=== PATIENT | male | born 1970 | race Two or more races ===

== ENCOUNTER 2021-01-03 10:14 | Emergency (ER) | payer SELFPAY ==
--- NOTE | 2021-01-03 10:33 | EDM.PDOC ---
ED HPI GENERAL MEDICAL PROBLEM - General Chief Complaint: Laceration Stated Complaint: CUT FINGER Time Seen by Provider: 01/03/21 10:31 - History of Present Illness INITIAL COMMENTS - FREE TEXT/NARRATIVE: 50-year-old male no other past medical history last tetanus 8 years ago presenting with laceration to the tip of the left middle finger. His left middle finger. Patient is right-hand dominant. He was working on his stairs a nd sustained a laceration with saw. No other injury, severe pain. Patient thinks he felt the saw hit the bone. finger Pain Score (Numeric/FACES): 10 - Related Data Allergies Allergy/AdvReac Type Severity Reaction Status Date / Time No Known Allergies Allergy Verified 01/03/21 10:42 Home Meds: Home Meds Amoxicillin/Potassium Clav [Augmentin 875-125 Tablet] 1 each PO BID 5 Days #10 tablet 01/03/21 [Rx] ED ROS GENERAL - Review of Systems Review Of Systems: See Below Free Text/Narrative/Comment: General: No fever. Musculoskeletal: Per HPI Neurologic: No headache. ED EXAM, SKIN/RASH Exam: See Below Text/Narrative:: General Appearance: No acute distress, appears comfortable HEENT: Normocephalic/atraumatic, sclera anicteric, mucous membranes moist Neck: Normal range of motion Chest and Lungs: Normal work of breathing Cardiovascular: Intact distal perfusion Musculoskeletal: 2+ left radial pulse flexion and extension intact at the MCP and PIP of the left middle finger where the laceration exists the laceration is 2 cm and wraps from the pad of the finger around dorsally and involves the nailbed and base of the nail plate which is macerated germinal matrix appears to be missing as does the proximal half of the nail plate itself Neurologic: Awake, alert, no obvious deficits, moving all extremities Psychiatric: Appropriate, cooperative ED SKIN PROCEDURES - Additional/Other Procedure(s) Other (Free Text) Procedure(s): Laceration Repair Procedure Location: Left middle finger Length: 2 cm Suture size and type: 5-0 nylon Number of sutures: 6 Complexity: Complex Time out: Yes, confirmed patient, place, procedure correct Consent: Verbal Suture technique: Simple interrupted Procedure: The wound was irrigated copiously with normal saline under pressure. Close inspection revealed no evidence for retained foreign bodies. Anesthesia was achieved using lidocaine without epinephrine as a digital block. Patient could not demonstrate good extensor tendon function even after blocking there is extensive nailbed injury proximal half of the nailbed is lacerated germinal matrix and proximal half of the nail plate are missing. No obvious repairable structures are noted within this region 6 stitches were placed to improve alignment and close the other soft tissue defects. Sutures were placed using the above technique with approximation of the wound edges. Sterile dressing with bacitracin, petroleum gauze copious padding and a finger splint were then applied. Complications: None Performed by: Matthew Greer MD Course - Vital Signs Last Recorded V/S: Last Vital Signs Temp 97.8 F 01/03/21 10:43 Pulse 64 01/03/21 10:43 Resp 18 01/03/21 10:43 BP 124/72 01/03/21 10:43 Pulse Ox - Orders/Labs/Meds Meds: Medications Discontinued Medications Generic Name Dose Route Start Last Admin Trade Name Freq PRN Reason Stop Dose Admin Hydrocodone Bitart/Acetaminophen 1 tab 01/03/21 11:39 Acetaminophen/Hydrocodone 325-10 Mg Tab PO 01/03/21 11:40 ONETIME ONE Bacitracin 1 dose 01/03/21 11:52 Bacitracin Oint 1 Gm U/D Packet TOP 01/03/21 11:53 ONETIME ONE Lidocaine HCl 5 ml 01/03/21 10:33 01/03/21 10:52 Lidocaine 1% 5 Ml Sdv INJECT 01/03/21 10:34 5 ml ONETIME ONE Administration Departure - Departure Time of Disposition: 11:34 Disposition: Home, Self-Care 01 Condition: Good Clinical Impression: Finger laceration with complication - Discharge Information *PRESCRIPTION DRUG MONITORING PROGRAM REVIEWED*: Not Applicable *COPY OF PRESCRIPTION DRUG MONITORING REPORT IN PATIENT WILLIAM: Not Applicable Prescriptions: Amoxicillin/Potassium Clav [Augmentin 875-125 Tablet] 1 each PO BID 5 Days #10 tablet Instructions: Laceration Care, Adult Forms: ED Department Discharge Additional Instructions: Please keep the dressing dry and in place until you follow-up with the hand surgeon. Please call Dr. Briggs office on Tuesday morning and they will get you an appointment to be seen on either Tuesday or Tuesday. Please be sure to take the antibiotics to help prevent infection. Your prescription was sent to [facility]. Hand Surgeon: Dr. Real Briggs [address] [place] [address] [address] Floor [phone] The following information is given to patients seen in the emergency department who are being discharged to home. This information is to outline your options for follow-up care. We provide all patients seen in our emergency department with a follow-up referral. The need for follow-up, as well as the timing and circumstances, are variable depending upon the specifics of your emergency department visit. If you don't have a primary care physician on staff, we will provide you with a referral. We always advise you to contact your personal physician following an emergency department visit to inform them of the circumstance of the visit and for follow-up with them and/or the need for any referrals to a consulting specialist. The emergency department will also refer you to a specialist when appropriate. This referral assures that you have the opportunity for follow-up care with a specialist. All of these measure are taken in an effort to provide you with optimal care, which includes your follow-up. Under all circumstances we always encourage you to contact your private physician who remains a resource for coordinating your care. When calling for follow-up care, please make the office aware that this follow-up is from your recent emergency room visit. If for any reason you are refused follow-up, please contact the [facility] Emergency Department at and asked to speak to the emergency department charge nurse. Sepsis Event Note (ED) - Focused Exam Vital Signs: Vital Signs Temp Pulse Resp BP 01/03/21 10:43 97.8 F 64 18 124/72 - Assessment/Plan Assessment:: 50-year-old male presenting with complicated nailbed laceration. His tetanus is up-to-date. X-ray reveals significant distal phalanx fracture. The nailbed itself is not repairable by me it is highly macerated without obvious repairable borders the germinal matrix of the nail is missing. Laceration will be reapproximated as we are able and will discuss with hand surgery. Laceration repaired as documented. Given the distal phalanx fracture and the complex nail bed injury patient discussed with Dr. Real Briggs the hand surgeon at [facility] in [place]. Agrees with need for prompt follow-up and the patient will be seen in their office on either Tuesday or Tuesday. Agrees with antibiotics for infection prophylaxis. Patient will be dressed with nonstick dressing and finger splint. The importance of follow-up to prevent infection preserve as much function as possible and avoid otherwise unnecessary amputations were discussed in detail with the patient and son who expressed understanding
--- NOTE | 2021-01-03 11:08 | CR ---
INDICATION: Laceration. COMPARISON: None. TECHNIQUE: Three views left 3rd finger. IMPRESSION: Complex fracture through the tuft and shaft of the distal phalanx 3rd finger. No intra-articular extension. Some diastasis and displacement of bony debris through the tuft. No radiopaque foreign body. Soft tissue swelling. Dictated by Satya Jeff MD @ 01/03/2021 11:08:29 AM (Electronically Signed)
[2021-01-03] MEDS ORDERED: Acetaminophen/HYDROcodone 325-10 MG Tab PO ONE (11:39)
[2021-01-03] MEDS ORDERED: Bacitracin Oint 1 GM U/D Packet TOP ONE (11:52)
== END 2021-01-03 12:10 | disposition home or self-care (01) ==
LOC: MW.ED 10:14
DX: S61.213A Laceration without foreign body of left middle finger without damage to nail, initial encounter (principal); W27.0XXA Contact with workbench tool, initial encounter; Y99.0 Civilian activity done for income or pay
CPT/HCPCS: 12001; 73140; 99283; A9270

== ENCOUNTER 2023-06-25 11:31 | Emergency (ER) | payer SELFPAY ==
[2023-06-25] MEDS: Diphtheria,Pertussis(Acell),Tetanus Vaccine 0.5 ML Syringe IM ONE (12:06)
[2023-06-25] MEDS: Lidocaine 1% 5 ML VIAL INJECT ONE (12:08)
== END 2023-06-25 13:14 | disposition home or self-care (01) ==
LOC: MW.ED 11:31
DX: S81.011A Laceration without foreign body, right knee, initial encounter (principal); Z79.899 Other long term (current) drug therapy; Z23 Encounter for immunization; W26.8XXA Contact with other sharp object(s), not elsewhere classified, initial encounter; Y93.89 Activity, other specified
CPT/HCPCS: 12001; 12002; 90471; 90715; 99283; 99283-25; J3490